=== PATIENT | male | born 1970 | race Caucasian/White ===

== ENCOUNTER 2024-01-30 10:00 | Outpatient (CLI) | payer OTHER, SELFPAY ==
--- NOTE | 2024-02-10 21:49 | WPDHOMESLEEP ---
Sleep Study - Home Unattended Date of Study: 01/30/24 Ordering Provider: Lance Yates Interpreting Provider: Marixa Adams MD Home Sleep Study Type: Watch PAT Height: 1.68 m Weight: 102.058 kg Body Mass Index: 36.3 Neck Circumference (inches): 18 Grants: 16 Reason for Sleep Study Hypersomnolence Sleep History Shalom Sousa is a 53-year-old man with hypersomnolence. He feels tired all the time, and has had witnessed apneas during the night. He rarely awakens from sleep feeling short of breath. He frequently wakes at night with heartburn, belching or coughing.??He constantly snores, frequently snores loudly enough that others complain. He frequently has trouble sleeping when he has a cold. He rarely wakes up gasping for breath during the night. He rarely has breathing problems at night. He never sweats excessively at night. He never notices his heart pounding or beating irregularly during the night. He constantly falls asleep during the day. He never falls asleep involuntarily, never falls asleep while driving. He never experiences loss of muscle tone with strong emotion. He constantly has daytime difficulty at work due to excessive sleepiness. He occasionally feels paralyzed on waking or falling asleep. He occasionally experiences vivid dreams upon waking or falling asleep. He never feels afraid of going to sleep. He occasionally has nightmares. He occasionally recalls his dreams. He constantly has thoughts racing through his mind. He frequently feels sad or depressed. He constantly feels anxiety. He constantly notices parts of his body jerk. He frequently kicks during the night. He occasionally feels crawling or aching feelings in his legs. He occasionally feels leg pain at night. He never has morning jaw pain, never grinds his teeth at night. He frequently feels bothered by pain during the day, frequently is awakened by pain during the night. He constantly wakes up feeling stiff in the morning, and he constantly wakes feeling sore or achy. He constantly awakens with pain in his neck, spine, or joints. Normal bedtime is 10:00 p.m., falling asleep within 15-30 minutes, waking 3-5 times at night to urinate. Wake time is 7:00 a.m.. He typically gets between 4-5 hours of sleep per night. He keeps the same schedule on weekends. He takes naps in the day, and sometimes feel refreshed after a short 10-15 minute nap. Habits:??Tobacco:never smoker Caffeine: none Alcohol: none Recreational substances: none PMFSH Past Medical History Medical History (Updated 02/10/24 @ 21:58 by Marixa Adams MD) Arthritis Depression with anxiety Hyperlipidemia Hypertension Obstructive sleep apnea Surgical History Surgical History (Updated 02/10/24 @ 21:54 by aMrixa Adams MD) S/P left knee surgery Family History Family History (Updated 02/10/24 @ 21:55 by Marixa Adams MD) Other Alcohol abuse Arthritis Asthma Breast cancer Emphysema of lung Glaucoma Hypertension Seizures Social History Social History (Updated 02/10/24 @ 21:56 by Marixa Adams MD) Smoking status: Never smoker Medications Medications: Losartan potassium 100 mg a day Metoprolol succinate ER 25 mg a day Loratadine 10 mg a day Amlodipine besylate 1o mg a day Albuterol sulfate one puff every 4 hours as needed Sleep Procedure The sleep study was completed using [employer] a technically adequate device with seven channels: peripheral arterial tone, actigraphy, body position, snore, respiratory movement, pulse oximetry, sleep staging, and heart rate. Prior to using the device, the patient received verbal and written instructions for its application and was provided with the help desk phone number for additional telephonic instruction with 24-hour availability of qualified personnel to answer questions. Sleep Architecture The total recording time is 9 hours 29 minutes. The total sleep time is 8 hours 36 minutes. Sleep laten
[2024-02-10 22:01] VITALS: BMI 36.3
== END 2024-01-31 07:30 | disposition home or self-care (01) ==
LOC: ANHCSM 10:02
DX: G47.33 Obstructive sleep apnea (adult) (pediatric) (principal)
CPT/HCPCS: 95800; 95806